=== PATIENT | female | born 1980 | race Caucasian/White ===

== ENCOUNTER 2016-11-05 10:32 | Emergency (ER) | payer SELFPAY ==
[2016-11-05] MEDS ORDERED: DIPHENHYDRAMINE HCL 50 MG CAPSULE PO ONE (10:55)
[2016-11-05] MEDS ORDERED: PREDNISONE 20 MG TABLET PO ONE (10:55)
[2016-11-05] MEDS ORDERED: FAMOTIDINE 20 MG TABLET PO ONE (10:55)
--- NOTE | 2016-11-05 10:56 | ER Document Report ---
ED Medical Screen (RME) - General Stated Complaint: SORE THROAT Mode of Arrival: Ambulatory Information source: Patient Notes: Patient complains of sore throat for the past 3 weeks. Patient complains of swelling to hands and feet hx: Fibromyalgia, endometriosis I have greeted and performed a rapid initial assessment of this patient. A comprehensive ED assessment and evaluation of the patient, analysis of test results and completion of the medical decision making process will be conducted by additional ED providers. - Related Data Allergies/Adverse Reactions: No Known Allergies Allergy (Verified 11/05/16 10:53) Physical Exam - Vital signs Vitals: Temp Pulse Resp BP Pulse Ox 98.1 F 72 22 H 125/56 L 97 11/05/16 10:52 11/05/16 10:52 11/05/16 10:52 11/05/16 10:52 11/05/16 10:52 - HEENT Mouth/Lips: No: Angioedema Pharynx: Erythema Course - Vital Signs Vital signs: Temp Pulse Resp BP Pulse Ox 98.1 F 72 22 H 125/56 L 97 11/05/16 10:52 11/05/16 10:52 11/05/16 10:52 11/05/16 10:52 11/05/16 10:52
--- NOTE | 2016-11-05 11:56 | ER Document Report ---
HPI - HPI Patient complains to provider of: sore throat Onset: Yesterday Onset/Duration: Gradual Pain Level: 4 Context: 36-year-old female that is on Suboxone is complaining of a sore throat and also some facial swelling and red skin in her hands after she was taking over-the- counter medicine for a cold. She has upper dentures. She has no cough. No chest pain or shortness of breath. No abdominal pain. No nausea vomiting or diarrhea. No fever. Associated Symptoms: None Exacerbated by: Denies Relieved by: Denies Similar symptoms previously: No Recently seen / treated by doctor: No - ROS ROS below otherwise negative: Yes Systems Reviewed and Negative: Yes All other systems reviewed and negative - CARDIOVASCULAR Cardiovascular: DENIES: Chest pain - DERM Skin Color: Normal Past Medical History - General Information source: Patient - Social History Smoking Status: Current Every Day Smoker Chew tobacco use (# tins/day): No Frequency of alcohol use: None Drug Abuse: None Lives with: Spouse/Significant other Family History: Reviewed & Not Pertinent Patient has suicidal ideation: No Patient has homicidal ideation: No Renal/ Medical History: Denies: Hx Peritoneal Dialysis Psychiatric Medical History: Reports: Hx Bipolar Disorder Surgical Hx: Negative - Immunizations Hx Diphtheria, Pertussis, Tetanus Vaccination: No Vertical Provider Document - CONSTITUTIONAL Agree With Documented VS: Yes Exam Limitations: No Limitations - INFECTION CONTROL TRAVEL OUTSIDE OF THE [place] IN LAST 30 DAYS: No - HEENT HEENT: Normocephalic, PERRLA. negative: Conjuctival Injection, Pharyngeal Erythema Notes: Canker sores buccal mucosa bilateral posterior pharynx is normal. Uvula midline and nonswollen. - NECK Neck: Supple. negative: Lymphadenopathy-Left, Lymphadenopathy-Right - RESPIRATORY Respiratory: Breath Sounds Normal, No Respiratory Distress O2 Sat by Pulse Oximetry: 97 - CARDIOVASCULAR Cardiovascular: Regular Rate, Regular Rhythm - GI/ABDOMEN Gastrointestinal: Abdomen Soft, Abdomen Non-Tender - MUSCULOSKELETAL/EXTREMETIES Musculoskeletal/Extremeties: DELMI DYSON - NEURO Level of Consciousness: Awake, Alert - DERM Integumentary: Dry - Skin , red, dorsal bilateral hands and forearms. No hives. Course - Vital Signs Vital signs: Temp Pulse Resp BP Pulse Ox 98.1 F 72 22 H 125/56 L 97 11/05/16 10:52 11/05/16 10:52 11/05/16 10:52 11/05/16 10:52 11/05/16 10:52 Discharge - Discharge Clinical Impression: viral oral ulcers, Red skin, Anxiety Condition: Good Disposition: HOME, SELF-CARE Instructions: Mouth Sores ([facility]), Use of Diphenhydramine, Acid-Suppressing Medication ([facility]) Additional Instructions: take over the counter benadryl 50mg every 4-8 hours for rash take over the counter pepcid 2omg twice a day return to er if wrose gargle with antibacterial mouthwash new toothbrush when the ulcers go away see custom clothier if rash persists stop the over the counter cold medicine that may have caused the red skin Prescriptions: Chlorhexidine Gluconate [Peridex] 15 ml MM QID #200 mouthwash Referrals: MARIYA DEE DO [ACTIVE STAFF] - Follow up as needed
[2016-11-05 12:14] VITALS: BP 122/60
== END 2016-11-05 12:00 | disposition home or self-care (01) ==
LOC: EDBD → ER 10:32
DX: K12.1 Other forms of stomatitis (principal); L53.8 Other specified erythematous conditions; F41.9 Anxiety disorder, unspecified; F17.200 Nicotine dependence, unspecified, uncomplicated
CPT/HCPCS: 99283; 87070; 87880; J7512

== ENCOUNTER 2017-08-27 06:55 | Emergency (ER) | payer SELFPAY ==
[2017-08-27] MEDS ORDERED: LIDOCAINE 5% (700 MG) TRANSDERMAL ADH..PATCH TP ONE (08:23)
[2017-08-27] MEDS ORDERED: ACETAMINOPHEN 325 MG TABLET PO ONE (08:23)
--- NOTE | 2017-08-27 08:53 | RADIOLOGY REPORT (SQ) ---
EXAM DESCRIPTION: CHEST PA/LAT COMPLETED DATE/TIME: 08/27/2017 8:43 am REASON FOR STUDY: right thoracic back pain COMPARISON: None. TECHNIQUE: Frontal and lateral radiographic views of the chest acquired. NUMBER OF VIEWS: Two view. LIMITATIONS: None. FINDINGS: LUNGS AND PLEURA: No opacities, masses or pneumothorax. No pleural effusion. MEDIASTINUM AND HILAR STRUCTURES: Small focal density projects over the left hilum, either a calcific ation or artifact. No contour abnormalities. HEART AND VASCULAR STRUCTURES: Heart normal size. No evidence for failure. BONES: No acute findings. HARDWARE: None in the chest. OTHER: No other significant finding. IMPRESSION: NO SIGNIFICANT RADIOGRAPHIC FINDING IN THE CHEST. TECHNICAL DOCUMENTATION: JOB ID: [id number] [employer]- All Rights Reserved
[2017-08-27] MEDS ORDERED: METHOCARBAMOL 500 MG TABLET PO ONE (10:11)
--- NOTE | 2017-08-27 10:14 | ER Document Report ---
HPI - HPI Patient complains to provider of: Right upper back pain Onset: Other - 4 months, worse over the past 3 days Onset/Duration: Worse Quality of pain: Sharp Pain Level: 4 Context: Patient presents complaining of tender knots to right axilla that shoot pain around to her right upper back area for the past 4 months. Patient states that certain positions would reproduce her pain and certainly movements of her right upper extremity. Patient denies any injury. Patient states that the pain recently became persistent and worse over the past 3 days. Patient denies any cough or cold symptoms. Patient denies any abdominal pain. Patient denies any fever. Associated Symptoms: Other - Right upper back tenderness Exacerbated by: Movement Relieved by: Remaining still Similar symptoms previously: No Recently seen / treated by doctor: No - ROS ROS below otherwise negative: Yes Systems Reviewed and Negative: Yes All other systems reviewed and negative - CONSTITUTIONAL Constitutional: DENIES: Fever - EENT EENT: DENIES: Sore Throat - NEURO Neurology: DENIES: Headache - CARDIOVASCULAR Cardiovascular: DENIES: Chest pain - RESPIRATORY Respiratory: DENIES: Trouble Breathing, Coughing - GASTROINTESTINAL Gastrointestinal: DENIES: Abdominal Pain, Nausea - MUSCULOSKELETAL Musculoskeletal: REPORTS: Back Pain - DERM Skin Color: Normal Skin Problems: None Past Medical History - General Information source: Patient - Social History Smoking Status: Current Every Day Smoker Chew tobacco use (# tins/day): No Frequency of alcohol use: Occasional Drug Abuse: None 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 Denies: Hx Peritoneal Dialysis Psychiatric Medical History: Reports: Hx Bipolar Disorder Past Surgical History: Reports: Hx Gynecologic Surgery - Immunizations Hx Diphtheria, Pertussis, Tetanus Vaccination: No Vertical Provider Document - CONSTITUTIONAL Agree With Documented VS: Yes Exam Limitations: No Limitations General Appearance: WD/WN, No Apparent Distress - INFECTION CONTROL TRAVEL OUTSIDE OF THE [place] IN LAST 30 DAYS: No - HEENT HEENT: Atraumatic, Normocephalic - NECK Neck: Normal Inspection, Supple - RESPIRATORY Respiratory: Breath Sounds Normal, No Respiratory Distress, Chest Non-Tender O2 Sat by Pulse Oximetry: 97 - CARDIOVASCULAR Cardiovascular: Regular Rate, Regular Rhythm, No Murmur Pulses: Normal: Radial - BACK Back: Abnormal Inspection - Tenderness with palpation of right thoracic back area. Normal skin on examination.. negative: CVA Tenderness-Right, CVA Tenderness-Left - MUSCULOSKELETAL/EXTREMETIES Musculoskeletal/Extremeties: MAEW, Tender - Patient's right upper back tenderness reproduced with movement of right upper extremity, pain worsens with right arm abduction - NEURO Level of Consciousness: Awake, Alert, Appropriate Motor/Sensory: No Motor Deficit - DERM Integumentary: Warm, Dry Notes: Patient with 2 tender nodules to right axilla. Suspect tender lymph nodes. Normal skin color and temperature overlying nodular lesions. Course - Re-evaluation Re-evalutation: 08/27/17 10:[address] Lau regarding patient presentation, discussed patient's exam findings. Does not recommend any additional testing. Agrees with discharge plan of care. 08/27/17 Patient concerned about possible breast cancer and does not feel that the tender nodules to right axillary lymph nodes. Patient advised that she can follow-up as an outpatient with the primary doctor in obtain a mammogram to further evaluate these findings. Given the chest x-ray report, no concern for pneumonia or pneumothorax. Patient without any concerning symptoms for PE at this time, no abdominal tenderness, no concern for cholecystitis or . - Vital Signs Vital signs: Temp Pulse Resp BP Pulse Ox 97.7 F 78 16 105/60 97 08/27/17 07:03 08/27/17 07:03 08/27/17 07:03 08/27/17 07:03 08/27/17 07:03 - Diagnostic Test Radiology reviewed: Reports reviewed Discharge - Discharge Clinical Impression: right axillary nodule tenderness Muscle strain of right upper back Qualifiers: Encounter type: initial encounter Qualified Code(s): S29.012A - Strain of muscle and tendon of back wall of thorax, initial encounter Condition: Stable Disposition: HOME, SELF-CARE Instructions: Growth or Mass, Pending Workup ([facility]), Muscle Relaxers ([facility]), Muscle Strain ([facility]) Additional Instructions: Return immediately for any new or worsening symptoms Followup with your primary care provider, call tomorrow to make a followup appointment Follow-up with [facility]. Follow-up with the [facility], to seek assistance with getting a mammogram performed A primary doctor can follow-up your chest x-ray report Prescriptions: Methocarbamol [Robaxin 500 Mg Tablet] 500 mg PO QID PRN #24 tablet PRN Reason: Naproxen [Naprosyn 250 Nmg Tablet] 1 tab PO BID #14 tablet Referrals: [facility] [Provider Group] - Follow up as needed [facility]AL [facility] - Follow up as needed [facility] [Provider Group] - Follow up tomorrow
[2017-08-27 11:12] VITALS: BP 105/58
== END 2017-08-27 11:17 | disposition home or self-care (01) ==
LOC: ER 06:55
DX: S29.012A Strain of muscle and tendon of back wall of thorax, initial encounter (principal); R52 Pain, unspecified; M54.6 Pain in thoracic spine; M79.601 Pain in right arm; F17.200 Nicotine dependence, unspecified, uncomplicated; X58.XXXA Exposure to other specified factors, initial encounter
CPT/HCPCS: 71020; 99283

== ENCOUNTER 2018-02-19 09:48 | Emergency (ER) | payer SELFPAY ==
[2018-02-19 09:57] VITALS: BP 120/61
--- NOTE | 2018-02-19 11:19 | ER Document Report ---
ED Oral Problem - General Chief Complaint: Toothache Stated Complaint: TOOTH PAIN Time Seen by Provider: 02/19/18 11:06 Mode of Arrival: Ambulatory Information source: Patient Notes: 38-year-old female presents to ED for complaint of dental pain with facial and jaw swelling. She has a ulcerated area to the right upper gum swelling to the face up to the eye complain of a headache. She states that the face and gum is been swollen for at least a week or more. She states the ulcers been there for at least a week or more. She states she does not have any insurance or any way to go to the dentist. She states the pain is increasing and the swelling is increasing. She is alert and oriented speaks with even full sentences. She states that she had a fever of 102.2 last night but her temperature is 98.2 at this time. She states she took Tylenol last night and got rid of the fever. TRAVEL OUTSIDE OF THE U.[place]. IN LAST 30 DAYS: No - HPI Patient complains to provider of: Swelling of face, Swelling of jaw, Toothache, Other - Ulcer to the left upper gum Quality of pain: Pressure, Sharp, Throbbing Severity: Severe Pain Level: 5 Associated symptoms: Headache, Jaw pain, Toothache Worsened by: Cold Relieved by: Nothing Similar symptoms previously: Yes Recently seen / treated by doctor/dentist: No - Related Data Allergies/Adverse Reactions: No Known Allergies Allergy (Verified 02/19/18 09:51) Past Medical History - General Information source: Patient - Social History Smoking Status: Current Every Day Smoker Cigarette use (# per day): Yes - pack per day Chew tobacco use (# tins/day): No Smoking Education Provided: Yes - 4 minutes Frequency of alcohol use: None Drug Abuse: None Lives with: Spouse/Significant other Family History: Reviewed & Not Pertinent Patient has suicidal ideation: No Patient has homicidal ideation: No - Past Medical History Cardiac Medical History: Reports: None Pulmonary Medical History: Reports: None EENT Medical History: Reports: None Neurological Medical History: Reports: None Endocrine Medical History: Reports: None Renal/ Medical History: Reports: Other - Endometriosis Malignancy Medical History: Reports: None GI Medical History: Reports: None Musculoskeltal Medical History: Reports None Skin Medical History: Reports None Psychiatric Medical History: Reports: Hx Bipolar Disorder Traumatic Medical History: Reports: None Infectious Medical History: Reports: None Past Surgical History: Reports: Hx Gynecologic Surgery - Upper endoscopy for endometriosis - Immunizations Hx Diphtheria, Pertussis, Tetanus Vaccination: No Review of Systems - Review of Systems Constitutional: No symptoms reported EENT: Mouth pain - A large ulcerated area to the left upper gum, Mouth swelling , Dental problem, Other - Facial swelling to the left side Cardiovascular: No symptoms reported Respiratory: No symptoms reported Gastrointestinal: No symptoms reported Genitourinary: No symptoms reported Female Genitourinary: No symptoms reported Musculoskeletal: No symptoms reported Skin: No symptoms reported Hematologic/Lymphatic: No symptoms reported Neurological/Psychological: No symptoms reported -: Yes All other systems reviewed and negative Physical Exam - Vital signs Vitals: Temp Pulse Resp BP Pulse Ox 98.5 F 118 H 16 120/61 95 02/19/18 09:55 02/19/18 09:55 02/19/18 09:55 02/19/18 09:55 02/19/18 09:55 Interpretation: Normal - General General appearance: Appears well, Alert - HEENT Head: Normocephalic, Atraumatic Eyes: Normal Pupils: PERRL Ears: Normal External canal: Normal Tympanic membrane: Normal Sinus: Normal Mouth/Lips: Caries, Other - Ulcerated area to the left upper gum swelling to the jaw and gum swelling to the face Teeth diagram: 1 - Multiple decayed teeth with ulcerated area just lateral to the tooth #16, swelling to the face up to just below the eye Pharynx: Normal Neck: Normal - Respiratory Respiratory status: No respiratory distress Chest status: Nontender Breath sounds: Normal Chest palpation: Normal - Cardiovascular Rhythm: Regular Heart sounds: Normal auscultation Murmur: No - Abdominal Inspection: Normal Distension: No distension Bowel sounds: Normal Tenderness: Nontender Organomegaly: No organomegaly - Back Back: Normal, Nontender - Extremities General upper extremity: Normal inspection, Nontender, Normal color, Normal ROM , Normal temperature General lower extremity: Normal inspection, Nontender, Normal color, Normal ROM , Normal temperature, Normal weight bearing. No: Huseyin's sign - Neurological Neuro grossly intact: Yes Cognition: Normal Orientation: AAOx4 [place] Coma Scale Eye Opening: Spontaneous [place] Coma Scale Verbal: Oriented Eileen Coma Scale Motor: Obeys Commands [place] Coma Scale Total: 15 Speech: Normal Motor strength normal: LUE, RUE, LLE, RLE Sensory: Normal - Psychological Associated symptoms: Normal affect, Normal mood - Skin Skin Temperature: Warm Skin Moisture: Dry Skin Color: Normal Course - Re-evaluation Re-evalutation: 02/19/18 13:[address] called by Dr. Sanchez. She states she does not see any abscesses to the face or jaw. Patient will be treated with a IM injection of Rocephin and p.o. clindamycin and discharged home with a prescription for clindamycin. She will also be given a syringe full of viscous lidocaine. Patient instructed please do not use any more cocaine before she is seen by the dentist and this problem corrected. She will be given a referral to the dentist and to Dr. Diaz. After performing a Medical Screening Examination, I estimate there is LOW risk for a DEEP SPACE INFECTION (e.g., KIM'S ANGINA OR RETROPHARYNGEAL ABSCESS), MENINGITIS, INTRACRANIAL HEMORRHAGE, or AIRWAY COMPROMISE, thus I consider the discharge disposition reasonable. Also, there is no evidence or peritonitis, sepsis, or toxicity. I have reevaluated this patient multiple times and no significant life threatening changes are noted. The patient and I have discussed the diagnosis and risks, and we agree with discharging home with close follow-up with the understanding that symptoms and presentations can change. We also discussed returning to the Emergency Department immediately if new or worsening symptoms occur. We have discussed the symptoms which are most concerning (e.g., changing or worsening pain, trouble swallowing or breathing, neck stiffness or fever) that necessitate immediate return. - Vital Signs Vital signs: Temp Pulse Resp BP Pulse Ox 98.5 F 118 H 16 120/61 95 02/19/18 09:55 02/19/18 09:55 02/19/18 09:55 02/19/18 09:55 02/19/18 09:55 - Laboratory Result Diagrams: 02/19/18 12:14 02/19/18 12:14 Laboratory results interpreted by me: 02/19/18 02/19/18 02/19/18 11:28 12:14 12:14 Hct 35.2 L ESR 29 H Creatinine 0.51 L AST 59 H ALT 58 H C-Reactive Protein 34.8 H Urine Ketones 80 H - Diagnostic Test Radiology reviewed: Image reviewed, Reports reviewed Discharge - Discharge Clinical Impression: Pain due to dental caries, Facial cellulitis Condition: Stable Disposition: HOME, SELF-CARE Additional Instructions: TOOTHACHE: Your pain is due to dental decay. The tooth must be repaired in order for you to feel better. You will, therefore, be referred to a dentist. We do not have dentists on the staff at [facility]. Severe swelling or drainage around a tooth usually means a dental abscess. This also requires evaluation and treatment by the dentist, but antibiotics may be prescribed while awaiting dental treatment. You should be rechecked immediately if you develop major swelling of the face, increasing pain, a lump in the jaw or gums, headache, difficulty swallowing, or fever. CELLULITIS: You have an infection of your skin and underlying soft tissues called cellulitis. This is due to bacteria, which can enter through any break in the skin, or even through an irritated hair follicle. Untreated, cellulitis will usually worsen. Antibiotics are required. Usually, warm packs or warm soaks, and elevation of the infected area are recommended. You should start getting better within 24 to 36 hours. Most infections respond quickly to the right medication. Follow-up care is important, however, to check for abscess (boil) formation, unsuspected foreign body, or resistant infection. If you develop fever, chills, or if the area of infection is becoming rapidly more swollen or painful, call the doctor at once. CLINDAMYCIN: You have been given a prescription for the antibiotic clindamycin. It is often prescribed for infections in the mouth, such as dental infections or abscesses, and for skin infections due to MRSA. It's important that you take all the medication, unless instructed otherwise by your physician. Failure to complete the entire course can result in relapse of your condition. Common side effects of antibiotics include nausea, intestinal cramping, or diarrhea. Women may develop vaginal yeast infections, and babies can get yeast (thrush) in the mouth following the use of antibiotics. Contact your physician if you develop significant side effects from this medication. Allergy to this antibiotic can result in hives, wheezing, faintness, or itching. If symptoms of allergy occur, stop the medication and call the doctor. Monica You have been given an injection of an antibiotic called Rocephin ( ceftriaxone). Sometimes the injection must be combined with antibiotic pills. For some infections, such as an uncomplicated ear infection, Rocephin provides all the antibiotic that's needed. The antibiotic will be in your body for about two days. For serious infections, we usually repeat doses of Rocephin daily. Side effects are very unusual following a shot. Women may develop vaginal yeast infections, and babies can get yeast (thrush) in the mouth following the use of antibiotics. Contact your physician if you have symptoms with this medication. Allergy to this antibiotic can result in hives, wheezing, faintness, or itching. If symptoms of allergy occur, call the doctor at once. You have been given an IM injection of Rocephin and prescription for clindamycin for your dental infection. You have been given clindamycin in the emergency room also. Please do not use any more cocaine until you get the dental infection cleared up. Please follow-up with dentist or oral surgeon as soon as possible to correct your multiple cavities in your mouth. FOLLOW-UP CARE: You have been referred for follow-up care to the dentists listed below. Call the dentists office for an appointment as you were instructed or within the next two days. If you experience worsening or a significant change in your symptoms, notify the physician immediately or return to the Emergency Department at any time for re-evaluation. [facility] [address] [place], [place] [phone] [facility] [address] [place] [address] [facility], [facility] [address] [facility] [address] [facility] [address] [facility] [address] [email or web address] [address] [place] [address] Sunday- 8:00am to 5:00 pm Will see patients from other [facility]. Charges based on income and family size and accepts Medicare, Medicaid, and Insurances Will pull molars [employer] [facility] [facility], [facility] [id number] Hours of Operation 8:00 am - 4:30 pm weekdays The following dental offices accept Medicaid: [facility] [address] Dr[address] Sm[address] Dr. Altamirano Edson Costa [place], and [facility] Dr. Das ([place]) Dr. Magallanes ([place]) [facility] Drs. Martinez ([place]) Dr. Clark ([place]) [facility] Dr. Palma ([place]) Drs. Verma and ([place]) Medicaid Care Line Prescriptions: Clindamycin HCl 300 mg PO QID #40 capsule Forms: Smoking Cessation Education Referrals: EUNICE DIAZ DO [ASSOCIATE] - Follow up as needed
[2018-02-19] MEDS ORDERED: NORMAL SALINE 1000 ML 1,000 ML IV ONE (11:31)
[2018-02-19] MEDS ORDERED: KETOROLAC TROMETHAMINE INJ/PF 30 MG/1 ML SDV IV ONE (11:31)
[2018-02-19 12:08] LABS: APPEARANCE,URINE SLIGHTLY-CLOUDY; BILIRUBIN,URINE NEGATIVE (NEGATIVE); COLOR,URINE YELLOW; GLUCOSE, URINE NEGATIVE (NEGATIVE); KETONES,URINE 80 mg/dL (NEGATIVE); LEUKOCYTE ESTERASE,URINE NEGATIVE (NEGATIVE); NITRITE,URINE NEGATIVE (NEGATIVE); PROTEIN,URINE NEGATIVE (NEGATIVE); URINE SPECIFIC GRAVITY 1.012; UROBILINOGEN,URINE NEGATIVE mg/dL (<2.0)
[2018-02-19 12:25] LABS: URINE AMPHETAMINES SCREEN NEGATIVE; URINE BARBITURATES SCREEN NEGATIVE; URINE BENZODIAZEPINES SCREEN NEGATIVE; URINE COCAINE SCREEN UNCONFIRMED POSITIVE; URINE MARIJUANA (THC) SCREEN NEGATIVE; URINE METHADONE SCREEN NEGATIVE; URINE PHENCYCLIDINE SCREEN NEGATIVE
[2018-02-19 12:28] LABS: ABSOLUTE BASOPHILS # (AUTO) 0.1 10^3/uL (0.0-0.2); ABSOLUTE EOSINOPHILS # (AUTO) 0.3 10^3/uL (0.0-0.6); ABSOLUTE LYMPHOCYTES (AUTO) 1.7 10^3/uL (0.5-4.7); ABSOLUTE MONOCYTES (AUTO) 0.7 10^3/uL (0.1-1.4); ABSOLUTE NEUT (AUTO) 3.7 10^3/uL (1.7-8.2); BASOPHILS % (AUTO) 0.8 % (0-2); EOSINOPHILS % (AUTO) 3.9 % (0-6); HEMATOCRIT 35.2 % (36.0-47.0); LYMPHOCYTES % (AUTO) 26.6 % (13-45); MEAN CORPUSCULAR HEMOGLOBIN 31.8 pg (27.0-33.4); MEAN CORPUSCULAR HGB CONC 34.1 g/dL (32.0-36.0); MEAN CORPUSCULAR VOLUME 93 fl (80-97); MONOCYTES % (AUTO) 11.1 % (3-13); PLATELET COUNT 286 10^3/uL (150-450); RED BLOOD COUNT 3.77 10^6/uL (3.72-5.28); RED CELL DISTRIBUTION WIDTH 13.9 % (11.5-14.0); SEGMENTED NEUTROPHILS % (AUTO) 57.6 % (42-78); TOTAL CELLS COUNTED % (AUTO) 100 %; WHITE BLOOD COUNT 6.5 10^3/uL (4.0-10.5)
[2018-02-19 12:59] LABS: ALANINE AMINOTRANSFERASE 58 U/L (9-52); ALBUMIN 4.2 g/dL (3.5-5.0); ALKALINE PHOSPHATASE 66 U/L (38-126); ANION GAP 11 (5-19); ASPARTATE AMINO TRANSFERASE 59 U/L (14-36); BILIRUBIN,DIRECT 0.3 mg/dL (0.0-0.4); BILIRUBIN,TOTAL 0.5 mg/dL (0.2-1.3); BLOOD UREA NITROGEN 10 mg/dL (7-20); C-REACTIVE PROTEIN 34.8 mg/L (<10.0); CALCIUM 9.1 mg/dL (8.4-10.2); CARBON DIOXIDE 27 mmol/L (22-30); CHLORIDE 101 mmol/L (98-107); GLUCOSE 85 mg/dL (75-110); NEONATAL BILIRUBIN RESULT 0.2 mg/dL (0.1-1.1); SODIUM 138.8 mmol/L (137-145); TOTAL PROTEIN 7.2 g/dL (6.3-8.2)
[2018-02-19 13:08] LABS: ERYTHROCYTE SEDIMENTATION RATE 29 mm/hr (0-20)
[2018-02-19] MEDS ORDERED: CLINDAMYCIN HCL 150 MG CAPSULE PO ONE (13:52)
[2018-02-19] MEDS ORDERED: LIDOCAINE 1% INJ-PF (10 MG/ML) 30 ML SDV INJ ONE (13:52)
[2018-02-19] MEDS ORDERED: CEFTRIAXONE INJ 1000 MG VIAL IM ONE (13:52)
[2018-02-19] MEDS ORDERED: LIDOCAINE 2% VISCOUS SOLN 20 ML UDCUP PO ONE (13:53)
--- NOTE | 2018-02-19 13:59 | RADIOLOGY REPORT (SQ) ---
EXAM DESCRIPTION: CT SOFT TISSUE NECK WITH COMPLETED DATE/TIME: 02/19/2018 1:26 pm REASON FOR STUDY: facial swelling COMPARISON: None. TECHNIQUE: Post IV contrasted scanning from skull base through lung apices with review of bone, soft tissue and lung windows. Reconstructed coronal and sagittal MPR images reviewed. All images stored on PACS. All CT scanners at this facility use dose modulation, iterative reconstruction, and/or weight based d osing when appropriate to reduce radiation dose to as low as reasonably achievable (ALARA). [facility]: Dose Right [facility]: CareDose [facility]: Dose Right [facility]: Teradose 4D [facility]: AFFiRiS CONTRAST TYPE AND DOSE: contrast/concentration: Isovue 370.00 mg/ml; Total Contrast Delivered: 75.0 ml; Total Saline Delivered: 55.0 ml RENAL FUNCTION: Creatinine 0.5 RADIATION DOSE: CT Rad equipment meets quality standard of care and radiation dose reduction techniq ues were employed. CTDIvol: 12.2 - 12.2 mGy. DLP: 762 mGy-cm. . LIMITATIONS: Patient moved throughout the study. FINDINGS: There is motion artifact throughout the study. Limitations of this exam were discussed wi caroline Black in the emergency room. Patient has left-sided facial cellulitis with soft tissue swelling over the pre maxillary and left ma ndibular region of the face. No well circumscribed abscess is identified. No salivary gland stones. No left-sided Saray's duct stone is identified. No bulky adenopathy. Airway patent. No gross vascular stenosis There is mucous membrane thickening in the right maxillary and right ethmoid air cells. Advanced dental caries IMPRESSION: Study significantly degraded by motion artifact. There is facial cellulitis without hipolito ss evidence of abscess. TECHNICAL DOCUMENTATION: JOB ID: [id number] Quality ID # [id number]: Final reports with documentation of one or more dose reduction techniques (e.g., Au tomated exposure control, adjustment of the mA and/or kV according to patient size, use of iterative reconstruction technique) 2010 [employer]- All Rights Reserved Reading location - IP/workstation name: [email or web address]
== END 2018-02-19 14:18 | disposition home or self-care (01) ==
LOC: ER 09:48
DX: L03.211 Cellulitis of face (principal); K02.9 Dental caries, unspecified; R51 Headache; R68.84 Jaw pain; F17.210 Nicotine dependence, cigarettes, uncomplicated
CPT/HCPCS: 99406; 96372; 99284; 96361; 96374; 36415; 87040; 84703; 85025; 85652; 86140; 80053; 81001; 80307; 70491; J3490 ×2; J1885; J0696; J7030

== ENCOUNTER 2018-06-09 20:01 | Emergency (ER) | payer SELFPAY ==
[2018-06-09 21:34] LABS: ABSOLUTE EOSINOPHILS # (AUTO) 0.2 10^3/uL (0.0-0.6); ABSOLUTE LYMPHOCYTES (AUTO) 2.2 10^3/uL (0.5-4.7); ABSOLUTE MONOCYTES (AUTO) 0.3 10^3/uL (0.1-1.4); ABSOLUTE NEUT (AUTO) 3.1 10^3/uL (1.7-8.2); BASOPHILS % (AUTO) 0.7 % (0-2); EOSINOPHILS % (AUTO) 2.7 % (0-6); HEMATOCRIT 40.3 % (36.0-47.0); HEMOGLOBIN 13.5 g/dL (12.0-15.5); LYMPHOCYTES % (AUTO) 38.1 % (13-45); MEAN CORPUSCULAR HGB CONC 33.5 g/dL (32.0-36.0); MEAN CORPUSCULAR VOLUME 90 fl (80-97); MONOCYTES % (AUTO) 5.5 % (3-13); PLATELET COUNT 311 10^3/uL (150-450); RED BLOOD COUNT 4.49 10^6/uL (3.72-5.28); RED CELL DISTRIBUTION WIDTH 16.1 % (11.5-14.0); TOTAL CELLS COUNTED % (AUTO) 100 %; WHITE BLOOD COUNT 5.9 10^3/uL (4.0-10.5)
[2018-06-09 21:51] LABS: APPEARANCE,URINE SLIGHTLY-CLOUDY; BILIRUBIN,URINE NEGATIVE (NEGATIVE); COLOR,URINE YELLOW; GLUCOSE, URINE NEGATIVE (NEGATIVE); KETONES,URINE NEGATIVE (NEGATIVE); LEUKOCYTE ESTERASE,URINE NEGATIVE (NEGATIVE); NITRITE,URINE NEGATIVE (NEGATIVE); PROTEIN,URINE NEGATIVE (NEGATIVE); URINE SPECIFIC GRAVITY 1.026
[2018-06-09 21:52] LABS: ALBUMIN 4.5 g/dL (3.5-5.0); ALKALINE PHOSPHATASE 94 U/L (38-126); ASPARTATE AMINO TRANSFERASE 62 U/L (14-36)
--- NOTE | 2018-06-09 22:14 | ER Document Report ---
ED General - General Chief Complaint: Nausea/Vomiting Stated Complaint: NAUSEA/VOMITING Time Seen by Provider: 06/09/18 21:35 Notes: Patient is a 38-year-old female who presents with chief complaint of withdrawal symptoms. Patient reports she has nausea, vomiting, diarrhea, chills, shakiness and sweats. Patient reports that she typically takes Subutex 8 mg 4 times daily. Patient reports this is typically prescribed by Dr. Ayala at [facility] here in [place]. Patient reports that she has been unable to see that provider this month for her refill as she does not have the money for the office visit. Patient reports that over the last few days she has been "borrowing Subutex pills from friends". Patient is requesting a prescription for her Subutex until the first of the month when she states she will be able to follow-up with her regular provider. Patient further reports she is court ordered to take the Subutex. TRAVEL OUTSIDE OF THE U[place] IN LAST 30 DAYS: No - Related Data Allergies/Adverse Reactions: latex Allergy (Verified 06/09/18 20:25) Past Medical History - General Information source: Patient - Social History Smoking Status: Current Every Day Smoker Frequency of alcohol use: None Drug Abuse: None Family History: Reviewed & Not Pertinent Patient has suicidal ideation: No Patient has homicidal ideation: No Renal/ Medical History: Denies: Hx Peritoneal Dialysis Psychiatric Medical History: Reports: Hx Bipolar Disorder Past Surgical History: Reports: Hx Gynecologic Surgery - Upper endoscopy for endometriosis - Immunizations Hx Diphtheria, Pertussis, Tetanus Vaccination: No Review of Systems - Review of Systems Constitutional: No symptoms reported EENT: No symptoms reported Cardiovascular: No symptoms reported Respiratory: No symptoms reported Gastrointestinal: Diarrhea, Nausea, Vomiting Genitourinary: No symptoms reported Female Genitourinary: No symptoms reported Musculoskeletal: No symptoms reported Skin: No symptoms reported Hematologic/Lymphatic: No symptoms reported Neurological/Psychological: No symptoms reported Physical Exam - Vital signs Vitals: Temp Pulse BP Pulse Ox 98.4 F 80 130/77 H 99 06/09/18 20:08 06/09/18 20:08 06/09/18 20:08 06/09/18 20:08 - Notes Notes: PHYSICAL EXAMINATION: GENERAL: Well-appearing, anxious and in no acute distress. HEAD: Atraumatic, normocephalic. EYES: Pupils equal round and reactive to light, extraocular movements intact, conjunctiva are normal. ENT: Nares patent, oropharynx clear without exudates. Moist mucous membranes. NECK: Normal range of motion, supple without lymphadenopathy LUNGS: Breath sounds clear to auscultation bilaterally and equal. No wheezes rales or rhonchi. HEART: Regular rate and rhythm without murmurs ABDOMEN: Soft, nontender, nondistended abdomen. No guarding, no rebound. No masses appreciated. Female : deferred Musculoskeletal: Normal range of motion, no pitting or edema. No cyanosis. NEUROLOGICAL: Cranial nerves grossly intact. Normal speech, normal gait. Normal sensory, motor exams PSYCH: Normal mood, normal affect. SKIN: Warm, Dry, normal turgor, no rashes or lesions noted. Course - Re-evaluation Re-evalutation: CBC, CMP and urinalysis are unremarkable for any acute findings. These were ordered per nursing protocol. Consult was made with Dr. Gunter regarding patients request for subutex. He advised to give a one time dose of 8 mg subutex in the emergency department only as we are unable to send patient home with a prescription. This was discussed with the patient and she was informed that we are unable to send her home with a prescription however I can send her home with a prescription for Zofran for her nausea. - Vital Signs Vital signs: Temp Pulse Resp BP Pulse Ox 98.4 F 80 130/77 H 99 06/09/18 20:08 06/09/18 20:08 06/09/18 20:08 06/09/18 20:08 - Laboratory Result Diagrams: 06/09/18 21:18 06/09/18 21:18 Laboratory results interpreted by me: 06/09/18 06/09/18 06/09/18 21:18 21:18 21:18 RDW 16.1 H Chloride 108 H AST 62 H ALT 157 H Urine Urobilinogen 4.0 H Discharge - Discharge Clinical Impression: Nausea & vomiting Qualifiers: Vomiting type: unspecified Vomiting Intractability: unspecified Qualified Code( s): R11.2 - Nausea with vomiting, unspecified Diarrhea Qualifiers: Diarrhea type: unspecified type Qualified Code(s): R19.7 - Diarrhea, unspecified Condition: Stable Disposition: HOME, SELF-CARE Additional Instructions: The symptoms you are experiencing could likely be caused by withdrawal. We do not prescribe Subutex in the emergency department. Please follow-up with Dr. Ayala at [facility] for continued refills of your Subutex. Prescriptions: Ondansetron [Zofran Odt 4 mg Tablet] 1 - 2 tab PO Q4H PRN #15 tab.rapdis PRN Reason: For Nausea/Vomiting
[2018-06-09] MEDS ORDERED: BUPRENORPHINE HCL 2 MG SUBLINGUAL TABLET SL ONE (22:20)
[2018-06-09 22:44] LABS: ALANINE AMINOTRANSFERASE 157 U/L (9-52); ANION GAP 10 (5-19); BILIRUBIN,TOTAL 0.3 mg/dL (0.2-1.3); BLOOD UREA NITROGEN 20 mg/dL (7-20); CALCIUM 9.3 mg/dL (8.4-10.2); CARBON DIOXIDE 25 mmol/L (22-30); CHLORIDE 108 mmol/L (98-107); GLUCOSE 85 mg/dL (75-110); POTASSIUM 4.6 mmol/L (3.6-5.0); SODIUM 142.6 mmol/L (137-145); TOTAL PROTEIN 8.2 g/dL (6.3-8.2)
[2018-06-09 23:28] VITALS: BP 124/77
== END 2018-06-09 23:30 | disposition home or self-care (01) ==
LOC: ER 20:01
DX: R11.2 Nausea with vomiting, unspecified (principal); R19.7 Diarrhea, unspecified; F17.200 Nicotine dependence, unspecified, uncomplicated; Z91.040 Latex allergy status
CPT/HCPCS: 99284; 36415; 85025; 81025; 80053; 81001; J0571

== ENCOUNTER 2018-09-17 20:52 | Emergency (ER) | payer SELFPAY ==
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
[2018-09-17] MEDS ORDERED: MECLIZINE HCL 12.5 MG TABLET PO ONE (22:34)
[2018-09-17] MEDS ORDERED: ONDANSETRON 4 MG TAB.RAPDIS PO ONE (22:34)
[2018-09-17] MEDS ORDERED: ACETAMINOPHEN 325 MG TABLET PO ONE (22:34)
[2018-09-17] MEDS ORDERED: MECLIZINE HCL 12.5 MG TABLET ONE (23:23)
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
[2018-09-18 02:25] VITALS: BP 115/76
== END 2018-09-18 02:20 | disposition home or self-care (01) ==
LOC: ER 20:52
DX: S06.0X0A Concussion without loss of consciousness, initial encounter (principal); M79.10 Myalgia, unspecified site; Y04.2XXA Assault by strike against or bumped into by another person, initial encounter; Y92.89 Other specified places as the place of occurrence of the external cause; Z91.040 Latex allergy status; F17.200 Nicotine dependence, unspecified, uncomplicated
CPT/HCPCS: 99284; 70450; S0119; J3490

== ENCOUNTER 2018-11-18 08:23 | Emergency (ER) | payer SELFPAY ==
[2018-11-18] MEDS ORDERED: ONDANSETRON 4 MG TAB.RAPDIS PO ONE (09:04)
--- NOTE | 2018-11-18 09:22 | ER Document Report ---
ED General - General Chief Complaint: Abdominal Pain Stated Complaint: THROWING UP Time Seen by Provider: 11/18/18 09:03 Notes: 38-year-old female presents to the emergency department with multiple complaints. She complains of a cough that she has had for the last week. States she is coughing up some green yellow sputum. Complains of some nasal congestion with that. States she has had chills but no fever. She denies nausea or vomiting says she had a few loose stools. She stated that she thought she saw worms swimming in her stool. She brought us in a sample. The patient also admits to doing cocaine. She states at times she will hear voices on and off no suicidal homicidal thoughts. No visual hallucinations but will hear voices and baby is crying. She states that usually after ingestion of drugs. The patient states she has not done drugs in a few days. She denies any abdominal pain just nausea. TRAVEL OUTSIDE OF THE [place] IN LAST 30 DAYS: No - Related Data Allergies/Adverse Reactions: latex Allergy (Verified 11/18/18 08:26) Past Medical History - Social History Smoking Status: Current Every Day Smoker Frequency of alcohol use: None Drug Abuse: Cocaine Family History: Reviewed & Not Pertinent Patient has suicidal ideation: No Patient has homicidal ideation: No Renal/ Medical History: Denies: Hx Peritoneal Dialysis Psychiatric Medical History: Reports: Hx Bipolar Disorder Past Surgical History: Reports: Hx Gynecologic Surgery - Upper endoscopy for endometriosis - Immunizations Hx Diphtheria, Pertussis, Tetanus Vaccination: No Review of Systems - Review of Systems Constitutional: Chills. denies: Fever EENT: Nose congestion, Nose discharge Cardiovascular: Palpitations. denies: Chest pain, Heart racing Respiratory: Cough. denies: Short of breath Gastrointestinal: Diarrhea, Nausea, Vomiting. denies: Abdominal pain Genitourinary: denies: Dysuria, Hematuria Neurological/Psychological: Anxiety, Hallucinations. denies: Suicidal ideation -: Yes All other systems reviewed and negative Physical Exam - Vital signs Vitals: Temp Pulse Resp BP Pulse Ox 98.9 F 71 18 104/71 100 11/18/18 08:35 11/18/18 08:35 11/18/18 08:35 11/18/18 08:35 11/18/18 08:35 - Notes Notes: GENERAL_APPEARANCE: well_nourished, alert, cooperative, very anxious and animated VITALS: reviewed, see vital signs table. HEAD: no_swelling\tenderness on the head. EYES: PERRL, EOMI, conjunctiva_clear. NOSE: Clear_nasal_discharge. Mild turbinate inflammation MOUTH: (-)decreased moisture. No drooling or stridor, poor dentition THROAT: Mild throat_inflammation, no_airway_obstruction. no_lymphadenopathy NECK: supple, no_neck_tenderness, (-)thyromegaly. BACK: no_back_tenderness. CHEST_WALL: no_chest_tenderness. LUNGS: no_wheezing, no_rales, no_rhonchi, (-)accessory muscle use, good air exchange bilateral. HEART: normal_rate, normal_rhythm, normal_S1, normal_S2, (-)S3, (-)S4, no_murmur, no_rub. ABDOMEN: normal_BS, soft, no_abd_tenderness, (-)guarding, (-)rebound, no_organomegaly, no_abd_masses. EXTREMITIES: good pulses in all_extremities, no_swelling\tenderness in the extremities, no_edema. SKIN: warm, dry, good_color, no_rash. MENTAL_STATUS: speech_clear, oriented_X_3, anxious_affect, responds_appropriately to questions. NEURO: Neg Motor or Sensory Deficits on exam, CN 2-12 intact, DTR 2+ symmetric x 4, No cerbellar signs PSYCH: Patient denies suicidal or homicidal ideation denies visual hallucinations but does hear babies crying and voices from time to time. She does have insight into the situation. States she does see what she thinks is worms in her stool. Course - Re-evaluation Re-evalutation: 11/18/18 09:21 The patient presents slightly disheveled. She is having some auditory hallucinations I do not see any worms in her sample she brought. She complains of a cough we will get an x-ray for pneumonia give her some Zofran. Still looks very anxious and may be under the influence of cocaine however she does have a sober ride with her. She has no suicidal or homicidal thoughts. States she hears things from time to time but no command hallucinations. I spoke with her about this. We spoke about cessation of drug use. We will treat her symptomatically we will swab her for the flu. Chest x-ray to assess for pneumonia. Empiric treatment in case she does have any round worms or parasites though I think this is less likely 11/18/18 10:43 Chest X-Ray 11/18/18 09:03 IMPRESSION: 1. No significant interval changes since the previous examination dated 08/27/2017. No acute findings. Flu is negative chest x-ray is normal. Patient is resting comfortably. I will give her something for her cough and antihistamine. Also will give her empiric medicine for her feared parasitic infection. - Vital Signs Vital signs: Temp Pulse Resp BP Pulse Ox 98.9 F 71 18 104/71 100 11/18/18 08:35 11/18/18 08:35 11/18/18 08:35 11/18/18 08:35 11/18/18 08:35 Discharge - Discharge Clinical Impression: Worms in stool URI (upper respiratory infection) Qualifiers: URI type: unspecified viral URI Qualified Code(s): J06.9 - Acute upper respiratory infection, unspecified Condition: Good Disposition: HOME, SELF-CARE Instructions: Upper Respiratory Illness ([facility]) Prescriptions: Benzonatate [Tessalon Perles 100 mg Capsule] 100 mg PO Q8HP PRN #40 capsule PRN Reason: Cough Ivermectin [Stromectol 3 mg Tablet] 3 tab PO ONCE #3 tablet Ondansetron [Zofran Odt 4 mg Tablet] 1 - 2 tab PO Q4H PRN #15 tab.rapdis PRN Reason: For Nausea/Vomiting
--- NOTE | 2018-11-18 09:26 | RADIOLOGY REPORT (SQ) ---
EXAM DESCRIPTION: CHEST 2 VIEWS COMPLETED DATE/TIME: 11/18/2018 9:18 am REASON FOR STUDY: cough COMPARISON: 08/27/2017 EXAM PARAMETERS: NUMBER OF VIEWS: two views TECHNIQUE: Digital Frontal and Lateral radiographic views of the chest acquired. RADIATION DOSE: NA LIMITATIONS: none FINDINGS: LUNGS AND PLEURA: No opacities, masses or pneumothorax. No pleural effusion. MEDIASTINUM AND HILAR STRUCTURES: No masses or contour abnormalities. HEART AND VASCULAR STRUCTURES: Heart normal size. No evidence for failure. BONES: No acute findings. HARDWARE: None in the chest. OTHER: No other significant finding. IMPRESSION: 1. No significant interval changes since the previous examination dated 08/27/2017. No acute findings. TECHNICAL DOCUMENTATION: JOB ID: [id number] [employer]- All Rights Reserved Reading location - IP/workstation name: [email or web address]
[2018-11-18 09:46] LABS: A TYPE INFLUENZA AG NEGATIVE (NEGATIVE); B INFLUENZA AG NEGATIVE (NEGATIVE)
[2018-11-18 12:09] VITALS: BP 124/74
== END 2018-11-18 12:09 | disposition home or self-care (01) ==
LOC: ER 08:23
DX: B83.9 Helminthiasis, unspecified (principal); J06.9 Acute upper respiratory infection, unspecified; R05 Cough; R09.81 Nasal congestion; R68.83 Chills (without fever); R19.4 Change in bowel habit; F14.10 Cocaine abuse, uncomplicated; R44.0 Auditory hallucinations; R00.2 Palpitations; R11.2 Nausea with vomiting, unspecified; R19.7 Diarrhea, unspecified; R41.9 Unspecified symptoms and signs involving cognitive functions and awareness; Z91.040 Latex allergy status
CPT/HCPCS: 99283; 87804; 71046; S0119

== ENCOUNTER 2020-01-08 18:53 | Emergency (ER) | payer SELFPAY ==
[2020-01-08 18:58] VITALS: BP 108/71
== END 2020-01-08 19:30 | disposition left against medical advice (07) ==
LOC: ER 18:53
DX: Z53.21 Procedure and treatment not carried out due to patient leaving prior to being seen by health care provider (principal)

== ENCOUNTER 2020-01-10 05:52 | Emergency (ER) | payer SELFPAY ==
[2020-01-10] MEDS ORDERED: DEXTROSE 5%-LACTATED RINGERS 1,000 ML IV ONE (06:49)
[2020-01-10 07:00] LABS: APPEARANCE,URINE SLIGHTLY-CLOUDY; BILIRUBIN,URINE NEGATIVE (NEGATIVE); COLOR,URINE YELLOW; GLUCOSE, URINE NEGATIVE (NEGATIVE); KETONES,URINE NEGATIVE (NEGATIVE); LEUKOCYTE ESTERASE,URINE NEGATIVE (NEGATIVE); NITRITE,URINE NEGATIVE (NEGATIVE); PROTEIN,URINE NEGATIVE (NEGATIVE); URINE SPECIFIC GRAVITY 1.021; UROBILINOGEN,URINE NEGATIVE mg/dL (<2.0)
[2020-01-10 07:16] LABS: ABSOLUTE BASOPHILS # (AUTO) 0.1 10^3/uL (0.0-0.2); ABSOLUTE EOSINOPHILS # (AUTO) 0.2 10^3/uL (0.0-0.6); ABSOLUTE LYMPHOCYTES (AUTO) 2.1 10^3/uL (0.5-4.7); ABSOLUTE MONOCYTES (AUTO) 0.3 10^3/uL (0.1-1.4); EOSINOPHILS % (AUTO) 2.6 % (0-6); HEMATOCRIT 36.6 % (36.0-47.0); HEMOGLOBIN 12.7 g/dL (12.0-15.5); MEAN CORPUSCULAR HGB CONC 34.6 g/dL (32.0-36.0); MEAN CORPUSCULAR VOLUME 90 fl (80-97); MONOCYTES % (AUTO) 5.1 % (3-13); PLATELET COUNT 295 10^3/uL (150-450); RED BLOOD COUNT 4.09 10^6/uL (3.72-5.28); RED CELL DISTRIBUTION WIDTH 14.1 % (11.5-14.0); SEGMENTED NEUTROPHILS % (AUTO) 60.3 % (42-78); TOTAL CELLS COUNTED % (AUTO) 100 %; WHITE BLOOD COUNT 6.6 10^3/uL (4.0-10.5)
[2020-01-10 07:23] LABS: URINE AMPHETAMINES SCREEN NEGATIVE; URINE BARBITURATES SCREEN NEGATIVE; URINE MARIJUANA (THC) SCREEN NEGATIVE; URINE METHADONE SCREEN NEGATIVE; URINE PHENCYCLIDINE SCREEN NEGATIVE
[2020-01-10 07:24] LABS: URINE BENZODIAZEPINES SCREEN UNCONFIRMED POSITIVE; URINE COCAINE SCREEN UNCONFIRMED POSITIVE
[2020-01-10 07:34] LABS: ALKALINE PHOSPHATASE 66 U/L (38-126); ANION GAP 5 (5-19); ASPARTATE AMINO TRANSFERASE 24 U/L (14-36); BILIRUBIN,DIRECT 0.2 mg/dL (0.0-0.4); BILIRUBIN,TOTAL 0.2 mg/dL (0.2-1.3); BLOOD UREA NITROGEN 17 mg/dL (7-20); CALCIUM 8.9 mg/dL (8.4-10.2); CARBON DIOXIDE 28 mmol/L (22-30); CHLORIDE 103 mmol/L (98-107); GLUCOSE 90 mg/dL (75-110); POTASSIUM 4.2 mmol/L (3.6-5.0)
--- NOTE | 2020-01-10 07:47 | RADIOLOGY REPORT (SQ) ---
EXAM DESCRIPTION: XR ABDOMEN SUPINE AND ERECT WITH CHEST (ABD ACUTE SERIES) COMPLETED DATE/TME: 01/10/2020 06:47 CLINICAL HISTORY: 39 years, Female, nausea/vomiting/diarrhea COMPARISON: Chest x-ray dated 11/18/2018 NUMBER OF VIEWS: Three TECHNIQUE: AP view of the chest with supine and upright images of the abdomen LIMITATIONS: None. FINDINGS: The lungs are clear. The heart is normal in size. There is no pneumothorax or pleural effusion. The bones are unremarkable. There is no intraperitoneal free air. No dilated loops of small bowel are identified. There is a moderate amount of stool within the colon. IMPRESSION: No acute cardiopulmonary abnormality. Nonobstructive bowel gas pattern. copyright 2010 [employer]- All Rights Reserved
[2020-01-10 07:50] LABS: ACETAMINOPHEN < 10 ug/mL (10-30); ALCOHOL < 10 mg/dL (NONE DETECTED)
[2020-01-10] MEDS ORDERED: NORMAL SALINE 1000 ML 1,000 ML IV ONE (08:43)
[2020-01-10 09:57] VITALS: BP 102/67
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
== END 2020-01-10 10:13 | disposition home or self-care (01) ==
LOC: ER 05:52
DX: F19.10 Other psychoactive substance abuse, uncomplicated (principal); R19.7 Diarrhea, unspecified; R10.9 Unspecified abdominal pain; R51 Headache; R68.83 Chills (without fever); R11.2 Nausea with vomiting, unspecified; M79.10 Myalgia, unspecified site; F17.210 Nicotine dependence, cigarettes, uncomplicated; J45.909 Unspecified asthma, uncomplicated; Z91.040 Latex allergy status
CPT/HCPCS: 99284; 96360; 96361; 36415; 87040; 80307 ×3; 84702; 83605; 83690; 83735; 85025; 80053; 81001; 74022; J7121; J7030

== ENCOUNTER 2020-04-21 19:46 | Emergency (ER) | payer MEDICAID ==
[2020-04-21 19:59] VITALS: BP 122/62
[2020-04-21] MEDS ORDERED: GLUCAGON,HUMAN RECOMB 1 MG INJ SUBCUT ONE (20:00)
--- NOTE | 2020-04-21 20:06 | ER Document Report ---
ED Medical Screen (RME) - General Chief Complaint: Swallowed Foreign Body Stated Complaint: FOREIGN BODY IN THROAT Time Seen by Provider: 04/21/20 19:53 TRAVEL OUTSIDE OF THE [place] IN LAST 30 DAYS: No - HPI Notes: 04/21/20 20:03 40-year-old female presents emergency room for feeling like she has a small metal screen stuck to the right side of her throat after she was smoking a cigarette with CBD oil and somehow there was a screen in this device and she thinks that she got it stuck in the back of her throat. patient is speaking in complete sentences. She is forcing herself to vomit because she thinks this will get the screen out of her throat. Denies any fevers or chills, denies any shortness of breath or chest pain. Patient drink water without any issues. I have greeted and performed a rapid initial assessment of this patient. A comprehensive ED assessment and evaluation of the patient, analysis of test results and completion of the medical decision making process will be conducted by additional ED providers. PHYSICAL EXAMINATION: GENERAL: Well-appearing, well-nourished and in moderate distress from dry heaving. HEAD: Atraumatic, normocephalic. EYES: Pupils equal round extraocular movements intact, conjunctiva are normal. ENT: Uvula midline. No cervical or mandibular lymphadenopathy NECK: Normal range of motion CV: s1, s2 regular LUNGS: No respiratory distress neuro: Clear speech in full sentences - Related Data Allergies/Adverse Reactions: latex Allergy (Verified 01/10/20 06:39) Past Medical History Pulmonary Medical History: Reports: Hx Asthma Neurological Medical History: Reports: Hx Seizures - States she has had one in the past, never on meds Renal/ Medical History: Denies: Hx Peritoneal Dialysis Psychiatric Medical History: Reports: Hx Bipolar Disorder Past Surgical History: Reports: Hx Gynecologic Surgery - Upper endoscopy for endometriosis - Immunizations Hx Diphtheria, Pertussis, Tetanus Vaccination: No Physical Exam - Vital signs Vitals: Temp Pulse Resp BP Pulse Ox 98.5 F 105 H 24 H 122/62 96 04/21/20 19:54 04/21/20 19:54 04/21/20 19:54 04/21/20 19:54 04/21/20 19:54 Course - Vital Signs Vital signs: Temp Pulse Resp BP Pulse Ox 98.5 F 105 H 24 H 122/62 96 04/21/20 19:54 04/21/20 19:54 04/21/20 19:54 04/21/20 19:54 04/21/20 19:54
--- NOTE | 2020-04-21 20:35 | RADIOLOGY REPORT (SQ) ---
Neck soft tissue two view on 04/21/2020 at 8:16 PM CLINICAL INDICATION: Feels like swallowed piece of metal COMPARISON: CT from 02/19/2018 FINDINGS: There is a slight reversal of the normal cervical lordosis. The epiglottis and airway is unremarkable. There is no prevertebral soft tissue swelling. There is no radiopaque foreign body. IMPRESSION: No acute abnormality.
[2020-04-21 21:57] LABS: URINE AMPHETAMINES SCREEN NEGATIVE; URINE BARBITURATES SCREEN NEGATIVE; URINE METHADONE SCREEN NEGATIVE; URINE PHENCYCLIDINE SCREEN NEGATIVE
[2020-04-21 22:01] LABS: URINE BENZODIAZEPINES SCREEN UNCONFIRMED POSITIVE; URINE COCAINE SCREEN UNCONFIRMED POSITIVE; URINE MARIJUANA (THC) SCREEN UNCONFIRMED POSITIVE
== END 2020-04-22 03:20 | disposition left against medical advice (07) ==
LOC: ER 19:46
DX: Z53.20 Procedure and treatment not carried out because of patient's decision for unspecified reasons (principal); T18.9XXA Foreign body of alimentary tract, part unspecified, initial encounter; F17.210 Nicotine dependence, cigarettes, uncomplicated
CPT/HCPCS: 99281; 96372; 80307; 70360; J1610

== ENCOUNTER 2020-05-19 03:45 | Emergency (ER) | payer MEDICAID ==
[2020-05-19] MEDS ORDERED: MORPHINE SULFATE 10 MG/ML INJ IM ONE (04:44)
[2020-05-19] MEDS ORDERED: DIPHENHYDRAMINE HCL 50 MG/ML VIAL IM ONE (04:44)
[2020-05-19] MEDS ORDERED: CEFTRIAXONE INJ 1000 MG VIAL IM ONE (04:45)
[2020-05-19] MEDS ORDERED: GENTAMICIN SULFATE INJ 80 MG/2 ML VIAL IM ONE (04:46)
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
[2020-05-19] MEDS ORDERED: LIDOCAINE 1% INJ-PF (10 MG/ML) 30 ML SDV ONE (05:01)
[2020-05-19 05:28] LABS: ABSOLUTE EOSINOPHILS # (AUTO) 0.1 10^3/uL (0.0-0.6); ABSOLUTE LYMPHOCYTES (AUTO) 1.7 10^3/uL (0.5-4.7); ABSOLUTE MONOCYTES (AUTO) 0.4 10^3/uL (0.1-1.4); ABSOLUTE NEUT (AUTO) 6.7 10^3/uL (1.7-8.2); BASOPHILS % (AUTO) 0.6 % (0-2); EOSINOPHILS % (AUTO) 1.7 % (0-6); HEMATOCRIT 37.3 % (36.0-47.0); HEMOGLOBIN 12.6 g/dL (12.0-15.5); LYMPHOCYTES % (AUTO) 18.7 % (13-45); MEAN CORPUSCULAR HGB CONC 33.8 g/dL (32.0-36.0); MEAN CORPUSCULAR VOLUME 92 fl (80-97); MONOCYTES % (AUTO) 4.3 % (3-13); PLATELET COUNT 234 10^3/uL (150-450); RED BLOOD COUNT 4.06 10^6/uL (3.72-5.28); RED CELL DISTRIBUTION WIDTH 13.5 % (11.5-14.0); SEGMENTED NEUTROPHILS % (AUTO) 74.7 % (42-78); TOTAL CELLS COUNTED % (AUTO) 100 %
[2020-05-19 05:42] LABS: ALBUMIN 4.7 g/dL (3.5-5.0); ALKALINE PHOSPHATASE 69 U/L (38-126); ANION GAP 9 (5-19); ASPARTATE AMINO TRANSFERASE 30 U/L (14-36); BILIRUBIN,TOTAL 0.5 mg/dL (0.2-1.3); BLOOD UREA NITROGEN 16 mg/dL (7-20); CALCIUM 9.2 mg/dL (8.4-10.2); CARBON DIOXIDE 27 mmol/L (22-30); CHLORIDE 102 mmol/L (98-107); GLUCOSE 102 mg/dL (75-110); POTASSIUM 3.8 mmol/L (3.6-5.0); TOTAL PROTEIN 7.9 g/dL (6.3-8.2)
[2020-05-19 06:21] VITALS: BP 122/79
== END 2020-05-19 06:19 | disposition home or self-care (01) ==
LOC: ER 03:45
DX: T63.301A Toxic effect of unspecified spider venom, accidental (unintentional), initial encounter (principal); Y99.0 Civilian activity done for income or pay; L98.9 Disorder of the skin and subcutaneous tissue, unspecified; R68.83 Chills (without fever); R52 Pain, unspecified; R11.0 Nausea; J45.909 Unspecified asthma, uncomplicated; Z79.891 Long term (current) use of opiate analgesic; Z91.040 Latex allergy status
CPT/HCPCS: 99284; 96372; 36415; 87040; 85025; 80053; J1200; J1580; J3490; J2270; J0696

== ENCOUNTER 2020-05-26 19:39 | Emergency (ER) | payer MEDICAID ==
--- NOTE | 2020-05-26 20:44 | ER Document Report ---
ED Medical Screen (RME) - General Chief Complaint: Upper Abdominal Pain Stated Complaint: SHORTNESS OF BREATH/FLANK PAIN Time Seen by Provider: 05/26/20 20:40 Mode of Arrival: Ambulatory Information source: Patient Notes: 40-year-old female presented to ED for complaint of right upper quadrant lower lung and flank pain. She states it hurts to take a breath for the last 3 days. She states eating or drinking does not make any difference. She is on Subutex for a past heroin addiction. She states she does not take any narcotics or any illicit drugs at this time. She states she does smoke a pack a day but does not drink any alcohol. She states she was seen here about a week ago for spider bite and was not able to fill area of the prescriptions they gave her. She states she has been tired fatigue and pain since she came in for the spider bite. She states she has not been paid from her job so she does not have the money to fill prescriptions. I have greeted and performed a rapid initial assessment of this patient. A comprehensive ED assessment and evaluation of the patient, analysis of test results and completion of medical decision making process will be conducted by an additional ED providers. TRAVEL OUTSIDE OF THE [place] IN LAST 30 DAYS: No - Related Data Allergies/Adverse Reactions: latex Allergy (Verified 05/26/20 20:39) Past Medical History Pulmonary Medical History: Reports: Hx Asthma Neurological Medical History: Reports: Hx Seizures - States she has had one in the past, never on meds Renal/ Medical History: Denies: Hx Peritoneal Dialysis Psychiatric Medical History: Reports: Hx Bipolar Disorder Past Surgical History: Reports: Hx Gynecologic Surgery - Upper endoscopy for endometriosis - Immunizations Hx Diphtheria, Pertussis, Tetanus Vaccination: No Physical Exam - Vital signs Vitals: Temp Pulse Resp BP Pulse Ox 98.1 F 86 20 114/70 100 05/26/20 20:20 05/26/20 20:20 05/26/20 20:20 05/26/20 20:20 05/26/20 20:20 Course - Vital Signs Vital signs: Temp Pulse Resp BP Pulse Ox 98.1 F 86 20 114/70 100 05/26/20 20:20 05/26/20 20:20 05/26/20 20:20 05/26/20 20:20 05/26/20 20:20
--- NOTE | 2020-05-26 21:36 | RADIOLOGY REPORT (SQ) ---
EXAM DESCRIPTION: X-RAY CHEST-two views CLINICAL HISTORY: Right-sided chest pain COMPARISON: None TECHNIQUE: Two views of the chest. FINDINGS: There are no discrete air space infiltrates, pneumothoraces or pleural effusions. The pulmonary vascularity is normal. The cardiomediastinal silhouette is normal in size. No suspicious lytic or blastic osseous lesions are identified. IMPRESSION: There are no acute lung parenchymal findings. If there is focal point tenderness, dedicated rib series could be considered if clinically indicated.
--- NOTE | 2020-05-26 21:56 | RADIOLOGY REPORT (SQ) ---
EXAM DESCRIPTION: US ABDOMEN LIMITED COMPLETED DATE/TME: 05/26/2020 20:46 CLINICAL HISTORY: 40 years, Female, right upper quadrant abdominal pain COMPARISON: None. TECHNIQUE: Axial 2-D grayscale images of the abdomen were acquired. Doppler was utilized. LIMITATIONS: None. FINDINGS: Visualized portions of the pancreas appear normal in echogenicity. Visualized portions of the abdominal aorta and IVC appear normal. Liver is normal in echogenicity. It measures 17.1 cm in length. Antegrade flow is documented within the main portal vein. Gallbladder wall thickness measures 3 mm, possibly artifactual/related to gallbladder contraction. No gallstones. However, sonographic Yeager sign was positive. Common bile duct diameter measures 4 mm. Right kidney measures 11.4 x 4.2 x 5.2 cm in size. There is mild dilatation of the renal pelvis/visualized portions of the proximal ureter. No significant free fluid is identified within the imaged abdomen. IMPRESSION: Mild gallbladder wall thickening, possibly artifactual/related to gallbladder contraction. Otherwise, positive sonographic Yeager sign which is nonspecific in isolation. If there is continued concern for cholecystitis, consider HIDA scan. Mild dilatation of the right renal pelvis/proximal right ureter, indeterminate in etiology. copyright 2010 [employer]- All Rights Reserved
--- NOTE | 2020-05-26 21:58 | EKG REPORT ---
SEVERITY:- BORDERLINE ECG - SINUS RHYTHM BORDERLINE T ABNORMALITIES, ANT-LAT LEADS : Confirmed by: Sarahi Woodall MD 26-May-2020 21:57:39
[2020-05-26 22:10] LABS: ABSOLUTE EOSINOPHILS # (AUTO) 0.1 10^3/uL (0.0-0.6); ABSOLUTE LYMPHOCYTES (AUTO) 1.1 10^3/uL (0.5-4.7); ABSOLUTE MONOCYTES (AUTO) 0.4 10^3/uL (0.1-1.4); ABSOLUTE NEUT (AUTO) 4.2 10^3/uL (1.7-8.2); BASOPHILS % (AUTO) 0.5 % (0-2); EOSINOPHILS % (AUTO) 1.2 % (0-6); HEMATOCRIT 35.3 % (36.0-47.0); HEMOGLOBIN 11.9 g/dL (12.0-15.5); LYMPHOCYTES % (AUTO) 19.5 % (13-45); MEAN CORPUSCULAR HEMOGLOBIN 30.4 pg (27.0-33.4); MEAN CORPUSCULAR HGB CONC 33.6 g/dL (32.0-36.0); MEAN CORPUSCULAR VOLUME 91 fl (80-97); MONOCYTES % (AUTO) 7.5 % (3-13); PLATELET COUNT 302 10^3/uL (150-450); RED BLOOD COUNT 3.89 10^6/uL (3.72-5.28); RED CELL DISTRIBUTION WIDTH 13.6 % (11.5-14.0); SEGMENTED NEUTROPHILS % (AUTO) 71.3 % (42-78); TOTAL CELLS COUNTED % (AUTO) 100 %; WHITE BLOOD COUNT 5.9 10^3/uL (4.0-10.5)
[2020-05-26 22:24] LABS: ALBUMIN 4.1 g/dL (3.5-5.0); ALKALINE PHOSPHATASE 74 U/L (38-126); ANION GAP 9 (5-19); ASPARTATE AMINO TRANSFERASE 17 U/L (14-36); BILIRUBIN,DIRECT 0.3 mg/dL (0.0-0.4); BILIRUBIN,TOTAL 0.3 mg/dL (0.2-1.3); BLOOD UREA NITROGEN 10 mg/dL (7-20); CALCIUM 9.1 mg/dL (8.4-10.2); CARBON DIOXIDE 32 mmol/L (22-30); CHLORIDE 97 mmol/L (98-107); GLUCOSE 106 mg/dL (75-110); POTASSIUM 3.7 mmol/L (3.6-5.0); TOTAL PROTEIN 7.5 g/dL (6.3-8.2)
[2020-05-26 22:47] LABS: APPEARANCE,URINE CLEAR; BILIRUBIN,URINE NEGATIVE (NEGATIVE); COLOR,URINE STRAW; GLUCOSE, URINE NEGATIVE (NEGATIVE); KETONES,URINE NEGATIVE (NEGATIVE); LEUKOCYTE ESTERASE,URINE NEGATIVE (NEGATIVE); NITRITE,URINE NEGATIVE (NEGATIVE); PROTEIN,URINE NEGATIVE (NEGATIVE); URINE SPECIFIC GRAVITY 1.006; UROBILINOGEN,URINE NEGATIVE mg/dL (<2.0)
[2020-05-26 23:01] LABS: URINE BARBITURATES SCREEN NEGATIVE; URINE BENZODIAZEPINES SCREEN NEGATIVE; URINE MARIJUANA (THC) SCREEN NEGATIVE; URINE METHADONE SCREEN NEGATIVE; URINE PHENCYCLIDINE SCREEN NEGATIVE
[2020-05-26 23:05] LABS: ADD MANUAL MICROSCOPIC YES
[2020-05-26 23:06] LABS: WBC,URINE RARE /HPF
[2020-05-26 23:12] LABS: URINE COCAINE SCREEN UNCONFIRMED POSITIVE
[2020-05-27] MEDS ORDERED: DEXAMETHASONE SOD PHOS INJ 10 MG/1 ML VIAL IM ONE (05:04)
--- NOTE | 2020-05-27 05:07 | ER Document Report ---
ED General - General Chief Complaint: Upper Abdominal Pain Stated Complaint: SHORTNESS OF BREATH/FLANK PAIN Time Seen by Provider: 05/26/20 20:40 Mode of Arrival: Ambulatory Notes: Patient is a 40-year-old female comes emergency department for chief complaint of right lower rib pain. She states it hurts to take a deep breath. She denies trauma to the area, cough, fever. She does state that she recently had a cough and fever but this all resolved. She states she also got a spider bite on her right breast area, she was prescribed antibiotics but could not fill them, however this area has essentially resolved and healed at this point. Patient denies chest pain, she denies any difficulty eating, she denies nausea or vomiting. Patient is on Subutex and takes it daily. She smokes, denies alcohol, denies any recent IV drug abuse. TRAVEL OUTSIDE OF THE [place] IN LAST 30 DAYS: No - Related Data Allergies/Adverse Reactions: latex Allergy (Verified 05/26/20 20:39) Home Medications: subutex Past Medical History - General Information source: Patient - Social History Smoking Status: Current Every Day Smoker Chew tobacco use (# tins/day): No Frequency of alcohol use: None Drug Abuse: None Lives with: Family Family History: Reviewed & Not Pertinent Patient has homicidal ideation: No Pulmonary Medical History: Reports: Hx Asthma Neurological Medical History: Reports: Hx Seizures - States she has had one in the past, never on meds Renal/ Medical History: Denies: Hx Peritoneal Dialysis Psychiatric Medical History: Reports: Hx Bipolar Disorder Past Surgical History: Reports: Hx Gynecologic Surgery - Upper endoscopy for endometriosis - Immunizations Hx Diphtheria, Pertussis, Tetanus Vaccination: No Review of Systems - Review of Systems Constitutional: See HPI EENT: No symptoms reported Cardiovascular: No symptoms reported Respiratory: See HPI Gastrointestinal: No symptoms reported Genitourinary: No symptoms reported Female Genitourinary: No symptoms reported Musculoskeletal: See HPI Skin: See HPI Hematologic/Lymphatic: No symptoms reported Neurological/Psychological: No symptoms reported Physical Exam - Vital signs Vitals: Temp Pulse Resp BP Pulse Ox 98.1 F 86 20 114/70 100 05/26/20 20:20 05/26/20 20:20 05/26/20 20:20 05/26/20 20:20 05/26/20 20:20 - Notes Notes: GENERAL: Alert, interacts well. No acute distress. Patient is very thin but she is otherwise well-appearing HEAD: Normocephalic, atraumatic. EYES: Pupils equal, round, and reactive to light. Extraocular movements intact. ENT: Oral mucosa moist, tongue midline. Oropharynx unremarkable. Airway patent. NECK: Full range of motion. Supple. Trachea midline. No lymphadenopathy. LUNGS: Clear to auscultation bilaterally, no wheezes, rales, or rhonchi. No respiratory distress. Chest wall is tender with specific area of tenderness along the right lower ribs between the midclavicular and midaxillary lines. No erythema, crepitus, or signs of trauma. Pleuritic pain noted with deep breaths. HEART: Regular rate and rhythm. No murmur ABDOMEN: Soft, non-tender. Non-distended. Patient seems tender in the right upper quadrant, however patient clarifies that she actually has tenderness just above this in the right rib area with palpation. With re-palpation I do not appreciate any tenderness or guarding. EXTREMITIES: Moves all 4 extremities spontaneously. No edema, normal radial and dorsalis pedis pulses bilaterally. No cyanosis. BACK: no cervical, thoracic, lumbar midline tenderness. No saddle anesthesia, normal distal neurovascular exam. Moves all extremities in full range of motion. NEUROLOGICAL: Alert and oriented x3. Normal speech. Cranial nerves II through XII grossly intact. Strength 5/5 in all extremities. PSYCH: Normal affect, normal mood. SKIN: There is a healed area with a circular appearance suggesting a healed area that was formally an abscess just above the right nipple. There is no induration, fluctuance, erythema, or tenderness. Skin exam is otherwise unremarkable. Exam performed with Berna RN at bedside. Course - Re-evaluation Re-evalutation: Patient is able to eat without any difficulty, this does not produce pain, nausea, or vomiting. Abdomen is actually unremarkable, patient has tenderness over the right lower ribs without any trauma. Patient has pleuritic pain with deep breaths. Patient recently recovered from a respiratory illness with coughing and fever. She is not tachycardic, hypoxic, or short of breath. She does not have a pain in her chest, only on the right lower ribs. Chest x-ray unremarkable. CBC, chemistry nonspecific, negative. Based on patient specific exam I have a low suspicion of acute abdomen, pulmonary embolism, or other acute intrathoracic etiology. I discussed with patient details. I recommended anti-inflammatories, warm compresses, and she will continue her Suboxone. After discussing she was also provided with dexamethasone in an attempt to speed up her recovery. I discussed return precautions in detail with patient and family at bedside. They state appreciation and agreement. Stable, smiling, talkative, well-appearing at time of discharge. - Vital Signs Vital signs: Temp Pulse Resp BP Pulse Ox 97.9 F 103 H 20 104/70 96 05/27/20 02:27 05/27/20 02:27 05/26/20 20:20 05/27/20 02:27 05/27/20 02:27 - Laboratory Result Diagrams: 05/26/20 20:30 05/26/20 20:30 Laboratory results interpreted by me: 05/26/20 05/26/20 20:30 20:30 Hgb 11.9 L Hct 35.3 L Chloride 97 L Carbon Dioxide 32 H Creatinine 0.49 L - EKG Interpretation by Me Additional EKG results interpreted by me: EKG shows sinus rhythm at a rate of 96, QTc 465, no T wave inversions or ST segment changes in consecutive leads, normal axis. Discharge - Discharge Clinical Impression: Rib pain on right side, Pleuritic pain Condition: Stable Disposition: HOME, SELF-CARE Additional Instructions: Your evaluation is most consistent with patient and strain of the cartilage in your chest wall. Apply heat to the area, take [id number] anti- inflammatories, rest, this should gradually resolve. Follow-up with primary care. Return if you worsen including difficulty breathing, spiking fevers, severe worsening pain, passing out, or any other concerning or worsening symptoms. Prescriptions: Albuterol Sulfate [Proair HFA Inhalation Aerosol 8.5 gm MDI] 2 puff IH Q4H PRN #1 mdi PRN Reason: Forms: Smoking Cessation Education
[2020-05-27] MEDS ORDERED: DEXAMETHASONE SOD PHOSPHATE INJ 4 MG/1 ML VIAL ONE (05:47)
[2020-05-27] MEDS ORDERED: IBUPROFEN 400 MG TABLET PO ONE (05:48)
[2020-05-27 06:35] VITALS: BP 118/76
== END 2020-05-27 06:36 | disposition home or self-care (01) ==
LOC: ER 19:39
DX: R07.81 Pleurodynia (principal); N28.82 Megaloureter; J45.909 Unspecified asthma, uncomplicated; F17.200 Nicotine dependence, unspecified, uncomplicated; Z79.891 Long term (current) use of opiate analgesic; Z91.040 Latex allergy status
CPT/HCPCS: 93005; 99285; 96372; 36415; 87040; 83690; 84703; 85025; 80053; 81001; 80307; 71046; 76705; 93010; J3490; J1100

== ENCOUNTER 2020-05-30 11:03 | Emergency (ER) | payer MEDICAID ==
[2020-05-30] MEDS ORDERED: ONDANSETRON 4 MG TAB.RAPDIS PO ONE (11:22)
--- NOTE | 2020-05-30 11:23 | ER Document Report ---
ED Medical Screen (RME) - General Chief Complaint: Flank Pain Stated Complaint: FLANK PAIN Time Seen by Provider: 05/30/20 11:22 Information source: Patient Notes: Patient presents complaining of right upper quadrant pain and right flank pain for the past 2 weeks. Patient states pain is worse after eating. Patient reports nausea and some dysuria symptoms. Patient denies any fever or vomiting. Patient states that she feels short of breath because she cannot take a deep breath because of the pain. Patient denies any cough or cold symptoms. Patient reports a history of endometriosis. I have greeted and performed a rapid initial assessment of this patient. A comprehensive ED assessment and evaluation of the patient, analysis of test results and completion of the medical decision making process will be conducted by additional ED providers. TRAVEL OUTSIDE OF THE [place] IN LAST 30 DAYS: No - Related Data Allergies/Adverse Reactions: latex Allergy (Verified 05/30/20 11:20) Past Medical History Pulmonary Medical History: Reports: Hx Asthma Neurological Medical History: Reports: Hx Seizures - States she has had one in the past, never on meds Renal/ Medical History: Denies: Hx Peritoneal Dialysis Psychiatric Medical History: Reports: Hx Bipolar Disorder Past Surgical History: Reports: Hx Gynecologic Surgery - Upper endoscopy for endometriosis - Immunizations Hx Diphtheria, Pertussis, Tetanus Vaccination: No Physical Exam - Vital signs Vitals: Temp Pulse Resp BP Pulse Ox 98.0 F 85 16 97/63 L 95 05/30/20 11:08 05/30/20 11:08 05/30/20 11:08 05/30/20 11:08 05/30/20 11:08 - Abdominal Tenderness: Tender - Upper quadrant - Back Back: CVA tenderness - Left Course - Vital Signs Vital signs: Temp Pulse Resp BP Pulse Ox 98.0 F 85 16 97/63 L 95 05/30/20 11:08 05/30/20 11:08 05/30/20 11:08 05/30/20 11:08 05/30/20 11:08
[2020-05-30 12:47] LABS: ABSOLUTE EOSINOPHILS # (AUTO) 0.2 10^3/uL (0.0-0.6); TOTAL CELLS COUNTED % (AUTO) 100 %
[2020-05-30 12:52] LABS: ABSOLUTE LYMPHOCYTES (AUTO) 0.9 10^3/uL (0.5-4.7); ABSOLUTE MONOCYTES (AUTO) 0.5 10^3/uL (0.1-1.4); ABSOLUTE NEUT (AUTO) 3.9 10^3/uL (1.7-8.2); BASOPHILS % (AUTO) 0.6 % (0-2); EOSINOPHILS % (AUTO) 4.2 % (0-6); HEMATOCRIT 36.1 % (36.0-47.0); HEMOGLOBIN 12.5 g/dL (12.0-15.5); LYMPHOCYTES % (AUTO) 16.9 % (13-45); MEAN CORPUSCULAR HGB CONC 34.6 g/dL (32.0-36.0); MEAN CORPUSCULAR VOLUME 90 fl (80-97); MONOCYTES % (AUTO) 8.6 % (3-13); PLATELET COUNT 382 10^3/uL (150-450); RED BLOOD COUNT 4.02 10^6/uL (3.72-5.28); RED CELL DISTRIBUTION WIDTH 13.3 % (11.5-14.0); SEGMENTED NEUTROPHILS % (AUTO) 69.7 % (42-78); WHITE BLOOD COUNT 5.6 10^3/uL (4.0-10.5)
[2020-05-30 12:57] LABS: ALKALINE PHOSPHATASE 91 U/L (38-126); ANION GAP 8 (5-19); ASPARTATE AMINO TRANSFERASE 17 U/L (14-36); BILIRUBIN,DIRECT 0.3 mg/dL (0.0-0.4); BILIRUBIN,TOTAL 0.3 mg/dL (0.2-1.3); BLOOD UREA NITROGEN 10 mg/dL (7-20); CALCIUM 9.2 mg/dL (8.4-10.2); CARBON DIOXIDE 31 mmol/L (22-30); CHLORIDE 99 mmol/L (98-107); GLUCOSE 106 mg/dL (75-110); POTASSIUM 4.3 mmol/L (3.6-5.0); TOTAL PROTEIN 7.6 g/dL (6.3-8.2)
[2020-05-30] MEDS ORDERED: DICYCLOMINE HCL 20 MG TABLET PO ONE (13:38)
[2020-05-30] MEDS ORDERED: NORMAL SALINE 1000 ML 1,000 ML IV ONE (13:41)
--- NOTE | 2020-05-30 13:47 | ER Document Report ---
ED GI/ - General Chief Complaint: Abdominal Pain Stated Complaint: FLANK PAIN Time Seen by Provider: 05/30/20 11:22 Notes: Patient is a 40-year-old female who presents emergency department with a chief complaint of abdominal pain. Patient states that she has had her pain for the past week and a half. Patient patient states that the pain is mainly in the right side of her abdomen. Patient states that she also hit her abdomen when she was at work. She states that she hit her abdomen on encounter. States that Flexeril has not helped her. Denies any dysuria, vaginal discharge, vaginal pain, or vomiting. TRAVEL OUTSIDE OF THE [place] IN LAST 30 DAYS: No - Related Data Allergies/Adverse Reactions: latex Allergy (Verified 05/30/20 11:20) Past Medical History - General Information source: Patient - Social History Smoking Status: Current Some Day Smoker Family History: Reviewed & Not Pertinent Patient has homicidal ideation: No Pulmonary Medical History: Reports: Hx Asthma Neurological Medical History: Reports: Hx Seizures - States she has had one in the past, never on meds Renal/ Medical History: Denies: Hx Peritoneal Dialysis Psychiatric Medical History: Reports: Hx Bipolar Disorder Past Surgical History: Reports: Hx Gynecologic Surgery - Upper endoscopy for endometriosis - Immunizations Hx Diphtheria, Pertussis, Tetanus Vaccination: No Review of Systems - Review of Systems Notes: REVIEW OF SYSTEMS: CONSTITUTIONAL : Denies recent illness. Denies recent unintentional weight loss. Denies fever, chills, or sweats. EENT: Denies eye, ear, throat, or mouth pain, discharge, or symptoms. Denies nasal or sinus congestion. CARDIOVASCULAR: Denies chest pain. RESPIRATORY: Denies shortness of breath, cough, congestion, difficulty breathing, or wheezing. GASTROINTESTINAL: See HPI. GENITOURINARY: Denies difficulty urinating, burning, blood in urine, urgency or frequency. MUSCULOSKELETAL: Denies neck and back pain. Denies joint pain or swelling. SKIN: Denies rash, itchiness, or lesions HEMATOLOGIC : Denies easy bruising or bleeding. LYMPHATIC: Denies swollen, painful, enlarged glands. NEUROLOGICAL: Denies no numbness or tingling denies weakness. Denies headache. Denies altered mental status. Denies alteration in speech. PSYCHIATRIC: Denies stress, anxiety, alteration in sleep patterns, or depression. All other systems reviewed and negative. Physical Exam - Vital signs Vitals: Temp Pulse Resp BP Pulse Ox 98.0 F 85 16 97/63 L 95 05/30/20 11:08 05/30/20 11:08 05/30/20 11:08 05/30/20 11:08 05/30/20 11:08 - Notes Notes: PHYSICAL EXAMINATION: GENERAL: Appears well, healthy, well-nourished, no acute distress. HEAD: Normocephalic, atraumatic. EYES: PERRL, conjunctiva normal, all extraocular movements intact, sclera nonicteric ENT: Moist mucous membranes. NECK: Supple, no noticeable swelling, redness, rash. Normal range of motion. LUNGS: Equal breath sounds bilaterally and clear to auscultation. No wheezes rales or rhonchi. CARDIOVASCULAR: S1-S2, regular rate, regular rhythm. Radial pulses 2+, normal. ABDOMEN: Normoactive bowel sounds. Soft, tender generalized abdomen, guarding a nd in all pride. EXTREMITIES: Normal strength and range of motion, no pitting or edema. No cyanosis. NEUROLOGICAL: Moves all extremities upon command. Strength 5/5 in all extremities. PSYCH: Normal mood, normal affect. SKIN: Warm, dry. No rash, lesions, ulcerations noted. Normal skin turgor. Course - Re-evaluation Re-evalutation: 05/30/20 15:01 Hematology is unremarkable. Chemistries are also unremarkable. Patient has a trace amount of fluid noted on CT scan at the Morison's pouch. I suspect she possibly hit her abdomen hard enough to pursue a blood vessel in the area. Advised patient that this will heal on its own. We will give her a small amount of Ultram to help with her pain. She is in agreement with this plan. Follow-up precautions were given. Verbal discharge instructions were given to the patien t. They verbalized understanding. They are stable for discharge. 05/30/20 15:59 I was called by [facility] pharmacy and they informed me that the patient was on buprenorphine already. I had them cancel the Ultram. - Vital Signs Vital signs: Temp Pulse Resp BP Pulse Ox 97.5 F 79 18 106/62 100 05/30/20 15:27 05/30/20 15:27 05/30/20 15:27 05/30/20 15:27 05/30/20 15:27 - Laboratory Result Diagrams: 05/30/20 12:22 05/30/20 12:22 Laboratory results interpreted by me: 05/30/20 12:22 Carbon Dioxide 31 H Discharge - Discharge Clinical Impression: Abdominal pain Qualifiers: Abdominal location: right upper quadrant Qualified Code(s): R10.11 - Right upper quadrant pain Condition: Stable Disposition: HOME, SELF-CARE Additional Instructions: You were seen today in the emergency department for abdominal pain. Your CT shows that you have a small amount of fluid in your abdomen from hitting your abdomen on the counter. This is what is causing your pain. You can take the pain medication as needed. Make sure you rest. Prescriptions: Tramadol HCl [Ultram 50 mg Tablet] 50 mg PO Q6HP PRN #6 tablet PRN Reason: Tramadol HCl [Ultram 50 mg Tablet] 50 mg PO Q6HP PRN #6 tablet PRN Reason:
--- NOTE | 2020-05-30 14:47 | RADIOLOGY REPORT (SQ) ---
EXAM DESCRIPTION: CT ABD/PELVIS WITH IV ONLY IMAGES COMPLETED DATE/TIME: 05/30/2020 2:22 pm REASON FOR STUDY: abdominal pain COMPARISON: None. TECHNIQUE: CT scan of the abdomen and pelvis performed using helical scanning technique with dynamic intravenous contrast injection. No oral contrast. Images reviewed with lung, soft tissue, and bone windows. Reconstructed coronal and sagittal MPR images reviewed. Delayed images for evaluation of the urinary system also acquired. All images stored on PACS. All CT scanners at this facility use dose modulation, iterative reconstruction, and/or weight based d osing when appropriate to reduce radiation dose to as low as reasonably achievable (ALARA). [facility]: Dose Right [facility]: CareDose [facility]: Dose Right [facility]: Teradose 4D [facility]: [employer] CONTRAST TYPE AND DOSE: contrast/concentration: Isovue 350.00 mmol/ml; Total Contrast Delivered: 59. 0 ml; Total Saline Delivered: 65.0 ml RENAL FUNCTION: BUN 10; creatinine 0.72 RADIATION DOSE: CT Rad equipment meets quality standard of care and radiation dose reduction techniq ues were employed. CTDIvol: 4.8 - 4.9 mGy. DLP: 469 mGy-cm.. LIMITATIONS: None. FINDINGS: LOWER CHEST: No significant findings. No nodules or infiltrates. LIVER: Normal size. No masses. No dilated ducts. SPLEEN: Normal size. No focal lesions. PANCREAS: No masses. No significant calcifications. No adjacent inflammation or peripancreatic fluid collections. Pancreatic duct not dilated. GALLBLADDER: Decompressed. No identified stones by CT criteria. No inflammatory changes to suggest c holecystitis. ADRENAL GLANDS: No significant masses or asymmetry. RIGHT KIDNEY AND URETER: No solid masses. No significant calcification. No hydronephrosis or hydroure ter. LEFT KIDNEY AND URETER: No solid masses. No significant calcification. No hydronephrosis or hydrouret er. AORTA AND VESSELS: No aneurysm. No dissection. Renal arteries, SMA, celiac without stenosis. RETROPERITONEUM: No retroperitoneal adenopathy, hemorrhage or masses. BOWEL AND PERITONEAL CAVITY: No masses or inflammatory changes. No peritoneal masses. No dilated loo ps. Trace fluid is noted in Morison's pouch. APPENDIX: Not definitively visualized, though there are no acute inflammatory changes about the cecum . PELVIS: No mass. No free fluid. Normal bladder. ABDOMINAL WALL: No masses. No hernias. BONES: No significant or acute findings. OTHER: No other significant finding. IMPRESSION: Trace fluid is noted in Morison's pouch. Otherwise, no acute inflammatory changes in th e abdomen or pelvis. TECHNICAL DOCUMENTATION: JOB ID: [id number] Quality ID # [id number]: Final reports with documentation of one or more dose reduction techniques (e.g., Au tomated exposure control, adjustment of the mA and/or kV according to patient size, use of iterative reconstruction technique) 2010 [employer]- All Rights Reserved Reading location - IP/workstation name: [email or web address]
--- NOTE | 2020-05-30 14:52 | RADIOLOGY REPORT (SQ) ---
EXAM DESCRIPTION: U/S ABDOMEN LIMITED W/O DOP IMAGES COMPLETED DATE/TIME: 05/30/2020 2:36 pm REASON FOR STUDY: RUQ abdominal pain COMPARISON: Abdominal ultrasound 05/26/2020 TECHNIQUE: Dynamic and static grayscale images acquired of the abdomen and recorded on PACS. Sawyer reis selected color Doppler and spectral images recorded. LIMITATIONS: None. FINDINGS: PANCREAS: No masses. Visualized pancreatic duct normal caliber. LIVER: No masses. Echotexture normal. LIVER VASCULATURE: Normal directional flow of the main portal vein and hepatic veins. GALLBLADDER: Contracted, limiting evaluation. Negative sonographic Yeager sign. The gallbladder wal l measures 2 mm. ULTRASOUND-DETECTED YEAGER'S SIGN: Negative. INTRAHEPATIC DUCTS AND COMMON DUCT: CBD and intrahepatic ducts normal caliber. No filling defects. INFERIOR VENA CAVA: Normal flow. AORTA: No aneurysm. RIGHT KIDNEY: Normal size. Normal echogenicity. No solid or suspicious masses. No hydronephrosis. No calcifications. PERITONEAL AND RIGHT PLEURAL SPACE: No ascites or effusions. OTHER: No other significant findings. IMPRESSION: Contracted gallbladder, limiting evaluation, without other sonographic findings to sugge st cholecystitis. Otherwise, unremarkable right upper quadrant ultrasound. TECHNICAL DOCUMENTATION: JOB ID: [id number] 2010 [employer]- All Rights Reserved Reading location - IP/workstation name: [email or web address]
[2020-05-30] MEDS ORDERED: TRAMADOL HCL 50 MG TABLET PO ONE (15:22)
[2020-05-30 15:41] VITALS: BP 106/62
== END 2020-05-30 15:40 | disposition home or self-care (01) ==
LOC: ER 11:03
DX: R10.11 Right upper quadrant pain (principal); F17.200 Nicotine dependence, unspecified, uncomplicated; Z91.040 Latex allergy status
CPT/HCPCS: 99285; 96360; 36415; 83690; 85025; 80053; 76705; 74177; J3490; S0119; J7030

== ENCOUNTER 2020-06-25 17:42 | Emergency (ER) | payer MEDICAID ==
--- NOTE | 2020-06-25 20:15 | ER Document Report ---
HPI - HPI Time Seen by Provider: 06/25/20 20:07 Pain Level: 3 Notes: 40-year-old female patient presenting to the emergency department with concerns that she may have a urinary tract infection. Patient states she gets them frequently. She states that she has had burning with urination with nausea for the last few days. She further states that she has no money and cannot afford antibiotics and she is requesting that if she has a UTI we give her an antibiotic injection. She denies fever, vomiting or abdominal pain. - ROS Systems Reviewed and Negative: Yes All other systems reviewed and negative - CONSTITUTIONAL Constitutional: DENIES: Fever, Chills - GASTROINTESTINAL Gastrointestinal: REPORTS: Nausea. DENIES: Abdominal Pain - URINARY Urinary: REPORTS: Dysuria, Frequency - REPRODUCTIVE Reproductive: DENIES: : Past Medical History - General Information source: Patient - Social History Smoking Status: Current Every Day Smoker Frequency of alcohol use: Rare Drug Abuse: Marijuana Family History: Reviewed & Not Pertinent Patient has homicidal ideation: No Pulmonary Medical History: Reports: Hx Asthma Neurological Medical History: Reports: Hx Seizures - States she has had one in the past, never on meds Renal/ Medical History: Denies: Hx Peritoneal Dialysis Psychiatric Medical History: Reports: Hx Bipolar Disorder Past Surgical History: Reports: Hx Gynecologic Surgery - Upper endoscopy for endometriosis - Immunizations Hx Diphtheria, Pertussis, Tetanus Vaccination: No Vertical Provider Document - CONSTITUTIONAL Notes: PHYSICAL EXAMINATION: GENERAL: Well-appearing, well-nourished and in no acute distress. HEAD: Atraumatic, normocephalic. EYES: Pupils equal round extraocular movements intact, conjunctiva are normal. ENT: Nares patent NECK: Normal range of motion LUNGS: No respiratory distress Abdomen: Abdomen soft, nontender. Musculoskeletal: Normal range of motion NEUROLOGICAL: Normal speech, normal gait. PSYCH: Normal mood, normal affect. SKIN: Warm, Dry, normal turgor, no rashes or lesions noted. - INFECTION CONTROL TRAVEL OUTSIDE OF THE [place] IN LAST 30 DAYS: No Course - Re-evaluation Re-evalutation: Urinalysis is not that impressive however patient is symptomatic. She declines oral antibiotics stating that she will not be able to afford to get them filled. We will give her an injection of Rocephin pending a urine culture. Patient given strict ED return precautions patient verbalizes understanding and agreement with this plan. - Vital Signs Vital signs: Temp Pulse Resp BP Pulse Ox 98 F 72 14 102/62 96 06/25/20 20:03 06/25/20 18:37 06/25/20 18:37 06/25/20 18:37 06/25/20 18:37 Discharge - Discharge Clinical Impression: Cystitis Condition: Stable Disposition: HOME, SELF-CARE Additional Instructions: You were given a dose of antibiotics here in the emergency department. A urine culture is pending. Someone will contact you if there is any abnormality with your urine culture. Please return to the emergency department if you worsen in any way, you began persistently vomiting or you develop a fever greater than 101. Forms: Return to Work
[2020-06-25] MEDS ORDERED: PHENAZOPYRIDINE HCL 200 MG TABLET PO ONE (20:17)
[2020-06-25 20:38] LABS: APPEARANCE,URINE CLOUDY; BILIRUBIN,URINE NEGATIVE (NEGATIVE); COLOR,URINE YELLOW; GLUCOSE, URINE NEGATIVE (NEGATIVE); KETONES,URINE NEGATIVE (NEGATIVE); LEUKOCYTE ESTERASE,URINE NEGATIVE (NEGATIVE); NITRITE,URINE NEGATIVE (NEGATIVE); PROTEIN,URINE NEGATIVE (NEGATIVE); UROBILINOGEN,URINE NEGATIVE mg/dL (<2.0)
[2020-06-25] MEDS ORDERED: LIDOCAINE 1% INJ-PF (10 MG/ML) 30 ML SDV IM ONE (21:21)
[2020-06-25] MEDS ORDERED: CEFTRIAXONE INJ 1000 MG VIAL IM ONE (21:21)
[2020-06-25 22:09] VITALS: BP 106/61
== END 2020-06-25 22:58 | disposition home or self-care (01) ==
LOC: ER 17:42
DX: N30.90 Cystitis, unspecified without hematuria (principal)
CPT/HCPCS: 99284; 96372; 87086; 81025; 87088; 81001; J3490 ×2; J0696

== ENCOUNTER 2020-08-20 12:40 | Emergency (ER) | payer MEDICAID ==
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
--- NOTE | 2020-08-20 15:08 | RADIOLOGY REPORT (SQ) ---
EXAM DESCRIPTION: RIBS BILATERAL W/PA CXR IMAGES COMPLETED DATE/TIME: 08/20/2020 2:58 pm REASON FOR STUDY: rib pain/injury COMPARISON: None. TECHNIQUE: Frontal view of the chest and additional views of the left ribs acquired. NUMBER OF VIEWS: Five view. LIMITATIONS: None. FINDINGS: FRONTAL CXR: No pneumothorax. No pleural effusion. No atelectasis or infiltrates. RIBS: Mild displaced fractures of the 8th and 9th lateral ribs. Possibly nondisplaced 7th lateral ri b fracture. OTHER: No other significant finding. IMPRESSION: Definite mildly displaced fractures of the 8th and 9th lateral ribs. Possible nondispla gil fracture of the 7th lateral rib. No pneumothorax. COMMENT: SITE OF TRAUMA/COMPLAINT MARKED/STAMP COMPLETED: YES. TECHNICAL DOCUMENTATION: JOB ID: [id number] 2010 [employer]- All Rights Reserved Reading location - IP/workstation name: [email or web address]
[2020-08-20] MEDS ORDERED: KETOROLAC TROMETHAMINE 60 MG/2 ML SDV IM ONE (16:21)
[2020-08-20 16:23] VITALS: BP 107/61
== END 2020-08-20 16:34 | disposition home or self-care (01) ==
LOC: ER 12:40
DX: S22.42XA Multiple fractures of ribs, left side, initial encounter for closed fracture (principal); R07.81 Pleurodynia; W50.0XXA Accidental hit or strike by another person, initial encounter; R11.10 Vomiting, unspecified; J45.909 Unspecified asthma, uncomplicated; R06.02 Shortness of breath; F17.210 Nicotine dependence, cigarettes, uncomplicated; Z91.040 Latex allergy status
CPT/HCPCS: 99284; 96372; 71111; J1885